=== PATIENT | female | born 1995 | race African-American/Black ===

== ENCOUNTER 2017-04-22 13:41 | Emergency (ER) | payer OTHER ==
[~2017-04-22] VITALS: Ht 167.6 cm; Wt 70.9 kg
[~2017-04-22 13:41] MED LIST: BENA25CA4 PO; EPIP0.3I2 IJ; EPIP0.3I2 IM
[2017-04-22] MEDS ORDERED: ACET1TAB17 PO (13:46)
[2017-04-22] MEDS ORDERED: MIRA3350 PO (13:46)
[2017-04-22 15:18] LABS: CONTROL LINE UCG INT CTR LINE PRESENT
[2017-04-22 15:21] LABS: BASO % 0.4 % (0.0-1.0); EOS # 0.1 10^3/uL (0.0-0.50); EOS % 2.2 % (0.0-3.0); IMMATURE GRANULOCYTE % 0.2 % (0-0); LYMPH # 1.7 10^3/uL (1.5-6.5); LYMPH % 30.9 % (24.0-44.0); MEAN CORPUSCULAR HEMOGLOBIN 28.5 pg (27.0-33.0); MEAN CORPUSCULAR HGB CONC 32.4 g/dl (32.0-36.5); MEAN CORPUSCULAR VOLUME 87.9 fl (80.0-96.0); MONO # 0.3 10^3/uL (0.0-0.8); MONO % 5.6 % (0.0-5.0); NEUTROPHILS # 3.3 10^3/uL (1.8-7.7); NEUTROPHILS % 60.7 % (36.0-66.0); PLATELET COUNT, AUTOMATED 298 10^3/uL (150-450); RED CELL DISTRIBUTION WIDTH 12.2 % (11.5-14.5); WHITE BLOOD COUNT 5.5 10^3/uL (4.0-10.0)
[2017-04-22 15:23] LABS: MUCUS, URINE RFX SMALL (NEGATIVE); SPECIFIC GRAVITY UR AUTO RFX 1.015 (1.002-1.035); SQUAM EPITHELIAL CELL UR AURFX 1 /HPF (0-6)
[2017-04-22 15:43] LABS: ALBUMIN 3.6 GM/DL (3.2-5.2); ALBUMIN/GLOBULIN RATIO 0.73 (1.00-1.93); ALKALINE PHOSPHATASE 76 U/L (45-117); ALT/SGPT 20 U/L (12-78); ANION GAP 7 MEQ/L (8-16); AST/SGOT 24 U/L (7-37); BILIRUBIN,TOTAL 0.3 MG/DL (0.2-1.0); BLOOD UREA NITROGEN 6 MG/DL (7-18); CALCIUM LEVEL 9.3 MG/DL (8.5-10.1); CARBON DIOXIDE LEVEL 29 MEQ/L (21-32); CHLORIDE LEVEL 104 MEQ/L (98-107); CREATININE FOR GFR 0.73 MG/DL (0.55-1.02); GLUCOSE, FASTING 85 MG/DL (70-105); POTASSIUM SERUM 4.4 MEQ/L (3.5-5.1); SODIUM LEVEL 140 MEQ/L (136-145); TOTAL PROTEIN 8.5 GM/DL (6.4-8.2)
--- NOTE | 2017-04-22 16:43 | REP ---
CT of the abdomen and pelvis without IV or bowel contrast: There are no comparisons. The visualized lung sanchez are unremarkable. The unenhanced hepatic parenchyma, gallbladder, pancreas and spleen are normal size and unremarkable. The adrenals are unremarkable. There is no hydronephrosis or renal calculus. The unenhanced kidneys are otherwise unremarkable. The abdominal aorta, bowel and mesentery are unremarkable. Pelvis: The appendix is unremarkable. There is a trace of ascites in the cul-de-sac. The uterus and adnexa are otherwise unremarkable. The bladder is unremarkable. Impression: There is a trace of ascites in the cul-de-sac. The gallbladder, appendix and adnexa are otherwise unremarkable. There is no hydronephrosis. The kidneys are otherwise unremarkable. No bowel distension or obstruction. Otherwise, negative CT of the abdomen and pelvis. Signed by Efe Rendon MD 04/22/2017 04:34 P
[2017-04-22] MEDS ORDERED: ZANT300T PO (17:12)
[2017-04-22 17:18] VITALS: BP 128/75
== END 2017-04-22 17:26 | disposition home or self-care (01) ==
LOC: M ED 13:41
DX: R10.84 Generalized abdominal pain (principal); D57.3 Sickle-cell trait; Z91.010 Allergy to peanuts; Z91.013 Allergy to seafood